=== PATIENT | male | born 1980 | race Caucasian/White ===

== ENCOUNTER 2016-07-26 23:01 | Inpatient (IN) | payer OTHER ==
[~2016-07-26] VITALS: Ht 188 cm; Wt 128.5 kg
== END 2016-07-27 16:55 | disposition short-term general hospital (02) | DRG 292 ==
LOC: ER 23:01 → MED 07-27 05:51
PROVIDERS: ADMIT Internal Medicine
DX: I11.0 Hypertensive heart disease with heart failure (principal); J98.11 Atelectasis; R18.8 Other ascites; I50.21 Acute systolic (congestive) heart failure; E11.65 Type 2 diabetes mellitus with hyperglycemia; E66.9 Obesity, unspecified; Z91.14 Patient's other noncompliance with medication regimen; Z79.4 Long term (current) use of insulin; Z68.36 Body mass index [BMI] 36.0-36.9, adult; Z79.899 Other long term (current) drug therapy; F17.200 Nicotine dependence, unspecified, uncomplicated; Z82.49 Family history of ischemic heart disease and other diseases of the circulatory system; Z83.3 Family history of diabetes mellitus
CPT/HCPCS: 36415; 80307; 93306; J1650; J1940

== ENCOUNTER 2016-07-26 23:01 | Emergency (ER) | payer OTHER | END 2016-07-27 05:50 | disposition critical access hospital (66) | LOC: ER 23:01 | DX: J90 Pleural effusion, not elsewhere classified (principal); R60.1 Generalized edema; E11.65 Type 2 diabetes mellitus with hyperglycemia; I10 Essential (primary) hypertension; Z79.4 Long term (current) use of insulin; Z79.899 Other long term (current) drug therapy | CPT/HCPCS: 96374 ==